=== PATIENT | male | born 1990 | race Caucasian/White ===

== ENCOUNTER 2017-02-28 04:41 | Emergency (ER) | payer OTHER ==
[~2017-02-28] VITALS: Ht 175.3 cm; Wt 98.0 kg
[~2017-02-28 04:41] MED LIST: VALA500T60 PO
[2017-02-28 04:45] VITALS: TEMP 36.7; Ht 175.3 cm; Wt 98.0 kg
[2017-02-28] MEDS ORDERED: KETOROLAC TROMETHAMINE 60 MG/2 ML VIAL IM STA (04:59)
--- NOTE | 2017-02-28 05:48 | DIAGNOSTIC IMAGING REPORT ---
RIGHT PELVIS/UNILATERAL HIP 2-3VIEWS CLINICAL HISTORY: 27 years-old Male presenting with right hip/groin pain Right. TECHNIQUE: Single frontal view of the pelvis and frontal and frog-leg lateral views of the right hip were obtained. COMPARISON: None. FINDINGS: Hip joints congruent. No acute fracture or subluxation. No significant degenerative change. No radiographic evidence of femoral acetabular impingement. Pubic symphysis and sacroiliac joints also normal. Lower lumbar spine normal. Mild stool burden noted in the right colon. IMPRESSION: No acute osseous injury of the right hip or pelvis. Electronically signed by: Edilberto Arzola M.D. 02/28/2017 5:47 AM Dictated Date/Time: 02/28/2017 5:45 AM
--- NOTE | 2017-02-28 06:00 | EMERGENCY ROOM VISIT NOTE ---
History First contact with patient: 04:50 Chief Complaint: LEG PAIN,LEG INJURY Stated Complaint: LEG PAIN History of Present Illness The patient is a 27 year old male who presents to the Emergency Room with complaints of right groin pain for the past few days is worse with movement and better with rest currently 6 out of 10. Patient denies fall, back pain, testicular pain, penile pain, knee pain, thigh pain, numbness, tingling, loss of bowel or bladder control, saddle anesthesia, fever, chills, leg weakness, IV drug abuse. Review of Systems See HPI for pertinent positives & negatives. A total of 10 systems reviewed and were otherwise negative. Past Medical/Surgical History None Social History Smoking Status: Never Smoker Smokeless Tobacco Use: No Alcohol Use: none Drug Use: none Marital Status: Housing Status: lives with family Occupation Status: employed Current/Historical Medications No Active Prescriptions or Reported Meds Physical Exam Vital Signs Date Time Temp Pulse Resp B/P (MAP) Pulse Ox O2 Delivery O2 Flow Rate FiO2 02/28/17 04:45 36.7 78 18 143/89 97 Room Air Physical Exam VITALS: Vitals are noted on the nurse's note and reviewed by myself. Vital signs stable. GENERAL: Pleasant male, in no acute distress, nondiaphoretic, well-developed well-nourished. SKIN: Capillary reflex less than 2 seconds. HEENT: Normocephalic. PERRLA. EOMI. Nares patent. Mucous membranes moist. Neck is supple without nuchal rigidity. HEART: Regular rate and rhythm without murmurs gallops or rubs. LUNGS: Clear to auscultation bilaterally without wheezes, rales or rhonchi. No retractions or accessory muscle use. ABDOMEN: Positive bowel sounds x 4. Normal tympanic percussion. Soft, nontender, without masses or organomegaly. Boyle sign negative. No guarding or rebound tenderness. MUSCULOSKELETAL: No gross musculoskeletal defects. No pedal edema. No calf tenderness. No thoracic or lumbar tenderness on exam. Negative straight leg raise. Right hip tender to palpation with increased pain with range of motion. No right thigh, knee, lower leg pain. Patient can walk on toes and heels without difficulties. NEURO: Patient was alert and oriented to person place and time. Normal sensation to light and sharp touch. Deep tendon reflexes 2+ patella bilaterally. No focal neurological deficits. Medical Decision & Procedures Medications Administered Medications (Trade) Dose Ordered Sig/Renetta Route Start Time Stop Time Status Last Admin Dose Admin Ketorolac Tromethamine (Toradol Inj) 60 mg NOW STAT IM 02/28/17 04:59 02/28/17 05:00 DC 02/28/17 05:09 60 MG ED Course Prior records/ancillary studies reviewed. Triage Nursing notes reviewed. Additional history obtained from family The patient's history was concerning for right groin/hip pain Differential diagnosis: Etiologies such as musculoskeletal, disc herniation, fracture, strain, sprain, shingles, acute exacerbation of chronic back pain, sciatica, cauda equina, as well as others were entertained. Physical findings: As above. No focal neurologic findings noted. ER treatment provided: Toradol On reassessment the patient felt better. Diagnostics interpreted by me: Imaging studies: Hip x-ray with no acute fracture, dislocation or effusion per my interpretation This appears to be consistent with right groin strain. Patient was neurovascularly and neurologically intact. He was advised to stretch the area out and take anti-inflammatories. He is advised follow-up with orthopedics if symptoms persist or here in the ER sooner for severe pain, numbness, tingling, worsening signs or symptoms or as needed. The patient's physical examination and detailed history did not reveal any red flags for hip pain such as those listed in the differential diagnosis. Therefore advanced diagnostics and consultations were felt to be unwarranted. By the evaluation outlined above emergent etiologies such as fracture, metastatic disease, infection, cord compression, cauda equina, as well as others were deemed relatively unlikely. The pt informed about the findings as listed above. All questions were answered and pleased with the treatment. Return instructions were outlined and the patient was discharged in stable condition. Referral: The patient was referred back to the orthopedics and/or primary care physician for follow-up in 2 to 3 days for a recheck of the current condition. Medical Decision As above Medication Reconcilliation Current Medication List: was personally reviewed by me Blood Pressure Screening Patient's blood pressure: Normal blood pressure Impression Primary Impression: Strain of muscle of right groin region Departure Information Dispostion Home / Self-Care Condition GOOD Prescriptions No Active Prescriptions or Reported Meds Referrals No Doctor, Assigned (PCP) Patient Instructions [facility] Additional Instructions Stretch the area out. Ibuprofen(Motrin, Advil) may be used for fever or pain. Use 600mg every six hours as needed. Take with food. Avoid using more than 2400mg in a 24 hour period. Do not use 2400mg per day for more than three consecutive days without physician direction. Prolonged inappropriate use can lead to stomach upset or ulcers. This medication can be taken if you need to drive, work, or perform activities which may be dangerous when taking narcotic pain medication. (AND/OR) Acetaminophen(Tylenol) may be used for fever or pain. Use 1000mg every six hours as needed. Avoid using more than 3000mg in a 24 hour period. This medication can be taken if you need to drive, work, or perform activities which may be dangerous when taking narcotic pain medication. Rest and avoid heavy lifting until your symptoms resolve and then gradually return to full activity. A good rule of thumb is if it hurts your groin to perform a certain activity, then it should be avoided until you are healthy again. A heating pad, warm compresses, or a hot shower may help with tight muscles and can be done several times a day as needed. Continue current medications. Return to the ER immediately for any numbness, tingling, severe pain, loss of control of your bowels or bladder, inability to walk, or as needed. Follow up with your primary care physician and/or orthopedics within 3-5 days for a recheck of your current condition.
[2017-02-28 06:03] VITALS: BP 133/77; PULSE 68; O2SAT 97
== END 2017-02-28 06:15 | disposition home or self-care (01) ==
LOC: C.EDB 04:43 → C.EDA 06:15
DX: S76.811A Strain of other specified muscles, fascia and tendons at thigh level, right thigh, initial encounter (principal); X58.XXXA Exposure to other specified factors, initial encounter

== ENCOUNTER → 2017-09-30 | Outpatient (CLI) | payer OTHER ==
[2017-09-30 14:08] LABS: BASO % 1.2 %; BASO ABS # 0.07 K/uL (0-0.2); EOS % 2.3 %; EOS ABS # 0.13 K/uL (0-0.5); HEMATOCRIT 43.8 % (42-52); HEMOGLOBIN 14.8 g/dL (14.0-18.0); IG# 0.04 K/uL (0.00-0.02); LYMPH % 28.3 %; LYMPH ABS # 1.59 K/uL (1.2-3.4); MEAN CORPUSCULAR HEMOGLOBIN 28.7 pg (25-34); MEAN CORPUSCULAR HGB CONC 33.8 g/dl (32-36); MEAN PLATELET VOLUME 10.3 fL (7.4-10.4); MONO % 9.3 %; MONO ABS # 0.52 K/uL (0.11-0.59); NEUT % 58.2 %; NEUT ABS # 3.26 K/uL (1.4-6.5); PLATELET COUNT 255 K/uL (130-400); RED CELL DISTRIBUTION WIDTH SD 40.7 fL (36.4-46.3); WHITE BLOOD COUNT 5.61 K/uL (4.8-10.8)
[2017-09-30 16:36] LABS: BLOOD UREA NITROGEN 18 mg/dl (7-18); CARBON DIOXIDE 28 mmol/L (21-32); CHOLESTEROL 192 mg/dl (0-200); CREATININE 0.91 mg/dl (0.60-1.40); GLUCOSE 90 mg/dl (70-99); SODIUM 138 mmol/L (136-145)
[2017-09-30 16:47] LABS: LDL CHOLESTEROL CALCULATED 113 mg/dl
== END | disposition home or self-care (01) ==
LOC: C.LABPBG 08:41
PROVIDERS: ATTEND Family Medicine
DX: R03.0 Elevated blood-pressure reading, without diagnosis of hypertension (principal); Z13.220 Encounter for screening for lipoid disorders

== ENCOUNTER → 2017-09-30 | Outpatient (CLI) | payer OTHER ==
--- NOTE | 2017-10-02 12:06 | POLYSOMNOGRAPH REPORT ---
CLINICAL DATA: A 27-year-old male with a BMI of 32, referred by Dr. Pastor with a history of snoring and hypersomnolence. His has noted more snoring over the last few months. He is more tired during the day. His Lambert Sleepiness score was 11/24. On the evening of 09/30/2017, a home sleep apnea test was performed using a [employer] type 3 monitor. RECORDING RESULTS: Total recording time was 10 hours. The patient's monitoring time and estimated sleep time was 7.8 hours. RESPIRATORY DATA: Moderate sleep apnea was documented. The AGUS was 19.3. There were 16 obstructive, 14 mixed and 31 central apneic episodes. There were 89 hypopneic episodes. The longest respiratory event was 50 seconds. OXIMETRY DATA: Nocturnal hypoxemia was seen. Oxygen daniella was 80%. Mean saturation was 92%. Time below 89% was 20 minutes. HEART RATE DATA: Heart rates ranged from 45-65 beats per minute. SNORING DATA: Snoring was recorded throughout the night. IMPRESSION: Moderate sleep apnea/hypopnea with respiratory event index of 19.3 with nocturnal hypoxemia. RECOMMENDATIONS: The patient may benefit from weight loss, use of an oral appliance, possibly positional therapy since the majority of his events occurred while supine, or repeat sleep study with CPAP. Sleep medicine consultation may be of benefit. Clinical correlation is needed. [id number]
== END | disposition home or self-care (01) ==
LOC: C.NEUR 10:10
PROVIDERS: ATTEND Family Medicine
DX: Z00.00 Encounter for general adult medical examination without abnormal findings (principal); G47.19 Other hypersomnia; R06.83 Snoring; R03.0 Elevated blood-pressure reading, without diagnosis of hypertension; Z23 Encounter for immunization; B00.1 Herpesviral vesicular dermatitis; Z13.220 Encounter for screening for lipoid disorders

== ENCOUNTER → 2017-11-09 | Outpatient (CLI) | payer OTHER | END | disposition home or self-care (01) | LOC: C.PATHSPEC 17:51 | PROVIDERS: ATTEND Urology | DX: Z30.2 Encounter for sterilization (principal) ==